=== PATIENT | female | born 1965 | race Caucasian/White ===

== ENCOUNTER 2018-08-14 05:57 | Day surgery (SDC) | payer OTHER ==
[2018-08-14] MEDS ORDERED: PROPOFOL 40 ML (07:52)
== END 2018-08-14 12:43 | disposition home or self-care (01) ==
LOC: GIL 05:57
DX: K44.9 Diaphragmatic hernia without obstruction or gangrene (principal); K21.9 Gastro-esophageal reflux disease without esophagitis; K29.70 Gastritis, unspecified, without bleeding; R13.14 Dysphagia, pharyngoesophageal phase; R12 Heartburn
CPT/HCPCS: 43235; 88305; 88312